=== PATIENT | female | born 1955 ===

== ENCOUNTER 2018-11-21 20:27 | Emergency (ER) | payer SELFPAY ==
[2018-11-21 20:40] VITALS: RESP 18; TEMP 97.8
--- NOTE | 2018-11-21 21:20 | ED PDOC ---
Arrival/HPI - General Chief Complaint: Anxiety Time Seen by Provider: 11/21/18 20:33 Historian: Patient, Family - History of Present Illness Narrative History of Present Illness (Text): 11/21/18 21:13 63 yo F w/ PMH of Hypertension, asthma, Hyperlipidemia, presents complaining of feeling anxious with desires to cry, she is on vacation here from [place]. Patient reports having similar symptoms of anxiety in the past when she was back home in [place]. Reports no chest pain, SOB, dyspnea, headache, dizziness, palpitations, fever, cough, N/V, headache, abdominal pain, leg pain/swelling. Of note, patient is requesting for a refill of her cholesterol and bp medication, since she has no doctor here in the and does not know where to follow up. Has no other complaints. Past Medical History - Cardiac Hx Hypertension: Yes - Psychiatric Hx Anxiety: Yes Hx Substance Use: No - Surgical History Hx Appendectomy: Yes Other/Comment: oopherectomy - Anesthesia Hx Anesthesia: No Hx Anesthesia Reactions: No Hx Malignant Hyperthermia: No Family/Social History Family/Social History: No Known Family HX Smoking Status: Never Smoked Hx Alcohol Use: No Hx Substance Use: No Allergies/Home Meds Allergies/Adverse Reactions: Allergies No Known Allergies Allergy (Verified 11/21/18 20:33) Review of Systems - Review of Systems Constitutional: absent: Fatigue, Fevers Respiratory: absent: SOB, Cough Cardiovascular: absent: Chest Pain, Palpitations, Edema Gastrointestinal: absent: Abdominal Pain, Nausea, Vomiting Musculoskeletal: absent: Arthralgias, Back Pain Neurological: absent: Headache, Dizziness Psychiatric: Anxiety. absent: Depression Physical Exam Vital Signs Temp Pulse Resp BP Pulse Ox 11/21/18 20:28 97.8 F 77 18 147/84 100 Temperature: Afebrile Blood Pressure: Normal Pulse: Regular Respiratory Rate: Normal Appearance: Positive for: Well-Appearing, Non-Toxic, Comfortable Pain Distress: None Mental Status: Positive for: Alert and Oriented X 3 - Systems Exam Head: Present: Atraumatic, Normocephalic Pupils: Present: PERRL Extroacular Muscles: Present: EOMI Conjunctiva: Present: Normal Mouth: Present: Moist Mucous Membranes Neck: Present: Normal Range of Motion Respiratory/Chest: Present: Clear to Auscultation, Good Air Exchange. No: Respiratory Distress, Accessory Muscle Use Cardiovascular: Present: Regular Rate and Rhythm, Normal S1, S2. No: Murmurs Abdomen: No: Tenderness, Distention, Peritoneal Signs Back: Present: Normal Inspection Upper Extremity: Present: Normal Inspection. No: Cyanosis, Edema Lower Extremity: Present: Normal Inspection. No: Edema Neurological: Present: GCS=15, CN II-XII Intact, Speech Normal, Motor Func Grossly Intact, Normal Sensory Function Skin: Present: Warm, Dry, Normal Color. No: Rashes Psychiatric: Present: Alert, Oriented x 3, Normal Insight, Normal Concentration Medical Decision Making ED Course and Treatment: 11/21/18 21:21 Patient medicated with xanax 0.5 mg PO. On reevaluation, patient reports improvement of symptoms, denies any chest pain, shortness of breath, headache, or dizziness. On exam, patient remains awake aler t and oriented 3 in no acute distress. Repeat neuro exam shows no focal findings. Advised to follow up with the clinic in 1-2 days without fail. Advised to take medication as prescribed. Return to the emergency room at any time for any new or worsening symptoms. Patient states she fully agrees with and understands discharge instructions. States that she agrees with the plan and disposition. Verbalized and repeated discharge instructions and plan. I have given the patient opportunity to ask any additional questions. - PA / COURT ADVOCATE / Resident Statement MD/DO has reviewed & agrees with the documentation as recorded. Disposition/Present on Arrival - Present on Arrival Any Indicators Present on Arrival: No History of DVT/PE: No History of Uncontrolled Diabetes: No Urinary Catheter: No History of Decub. Ulcer: No History Surgical Site Infection Following: None - Disposition Have Diagnosis and Disposition been Completed?: Yes Diagnosis: Anxiety Disposition: HOME/ ROUTINE Disposition Time: 21:15 Patient Plan: Discharge Condition: STABLE Discharge Instructions (ExitCare): Anxiety, Adult (DC) Print Language: [place] Additional Instructions: Thank you for letting us take care of you today. You were treated for anxiety. The emergency medical care you received today was directed at your acute symptoms. If you were prescribed any medication, please fill it and take as directed. It may take several days for your symptoms to resolve. Return to the Emergency Department if your symptoms worsen, do not improve, or if you have any other problems. Please contact the clinic in 2 days for re-evaluation and follow up. Bring any paperwork you were given at discharge with you along with any medications you are taking to your follow up visit. Our treatment cannot replace ongoing medical care by a primary care provider (PCP) outside of the emergency department. Thank you for allowing the [facility] team to be part of your care today. Prescriptions: ALPRAZolam [Xanax] 0.25 mg PO TID PRN #12 tab PRN Reason: Anxiety Atorvastatin [Lipitor] 20 mg PO DAILY #30 tab Hydrochlorothiazide [Microzide] 12.5 mg PO DAILY #30 cap Irbesartan 150 mg PO DAILY #30 tablet Referrals: [facility] [Outside] - Follow up with primary [facility] [Outside] - Follow up with primary Forms: [employer] (Dutch)
[2018-11-21 22:08] VITALS: BP 135/74; PULSE 72; O2SAT 99
--- NOTE | 2018-11-22 09:19 | CARD ---
APPROVED REPORT Date of service: 11/21/2018 EKG Measurement Heart [id number] <Conclusion> Normal sinus rhythm Normal ECG
== END 2018-11-21 21:40 | disposition home or self-care (01) ==
LOC: EDBD 20:27 → ED 20:27
DX: F41.9 Anxiety disorder, unspecified (principal); I10 Essential (primary) hypertension